=== PATIENT | male | born 1985 | race Two or more races ===

== ENCOUNTER 2019-05-01 03:55 | Emergency (ER) | payer OTHER ==
[~2019-05-01] VITALS: Ht 177.8 cm; Wt 83.6 kg
[2019-05-01] MEDS ORDERED: ELVI1TAB PO (04:22)
[2019-05-01] MEDS ORDERED: ELVI1TAB3 PO (04:22)
[2019-05-01] MEDS ORDERED: ALBU8HFA IH (04:22)
[2019-05-01] MEDS ORDERED: KETOROLAC TROMETHAMINE 30 MG/ML VIAL IM ONE (05:15)
[2019-05-01 06:10] VITALS: BP 119/78
== END 2019-05-01 06:17 | disposition home or self-care (01) ==
LOC: EMS 03:55
DX: S60.221A Contusion of right hand, initial encounter (principal); S60.222A Contusion of left hand, initial encounter; J45.909 Unspecified asthma, uncomplicated; F32.9 Major depressive disorder, single episode, unspecified; Z88.1 Allergy status to other antibiotic agents; Y04.2XXA Assault by strike against or bumped into by another person, initial encounter; Y93.89 Activity, other specified; Y92.89 Other specified places as the place of occurrence of the external cause; Y99.8 Other external cause status
CPT/HCPCS: 73130 ×2; 96372; 99283; J1885

== ENCOUNTER 2019-07-10 21:02 | Emergency (ER) | payer SELFPAY ==
[~2019-07-10] VITALS: Ht 170.2 cm; Wt 86.4 kg
[~2019-07-10 21:02] MED LIST: ALBU8HFA IH; ELVI1TAB3 PO
[2019-07-10] MEDS ORDERED: SODIUM CHLORIDE 0.9% 1,000 ML IV ONE (22:45)
[2019-07-10] MEDS ORDERED: KETOROLAC TROMETHAMINE 30 MG/ML VIAL IVP ONE (22:45)
[2019-07-10 23:10] LABS: BASOPHILS % (AUTO) 0.5 % (0.0-2.0); HEMATOCRIT 42.5 % (41-53); LYMPHOCYTES # (AUTO) 2.9 K/uL (1.0-4.8); LYMPHOCYTES % (AUTO) 34.9 % (22.0-44.0); MEAN CORPUSCULAR VOLUME 91 fL (80-100); MONOCYTES # (AUTO) 0.7 K/uL (0.1-1.0); MONOCYTES % (AUTO) 8.9 % (2.0-9.0); NEUTROPHILS # (AUTO) 4.4 K/uL (1.8-7.7); NEUTROPHILS % (AUTO) 52.7 % (40.0-70.0); PLATELET COUNT (AUTO) 201 K/uL (150-450); RED BLOOD CELL COUNT(AUTO) 4.67 MIL/uL (4.50-5.90); RED CELL DISTRIBUTION WIDTH 12.7 % (11.5-14.5)
[2019-07-10 23:18] LABS: ANION GAP 5 mmol/L (8-16); CALCIUM, TOTAL 8.6 mg/dL (8.8-10.5); CARBON DIOXIDE 31 mmol/L (22-29); CHLORIDE 104 mmol/L (98-107); CREATININE 0.98 mg/dL (0.60-1.30); GLOMERULAR FILTR. RATE CALC > 60 mL/min (>60); GLUCOSE,RANDOM 126 mg/dL (70-110); POTASSIUM 3.6 mmol/L (3.5-5.1); SODIUM SERUM 140 mmol/L (136-145); UREA NITROGEN, BLOOD 14 mg/dL (7-18)
[2019-07-10 23:30] LABS: CREATINE KINASE, TOTAL ONLY 53 U/L (39-308)
[2019-07-11 00:30] LABS: RAPID GROUP A STREP NEGATIVE (NEGATIVE)
[2019-07-11 00:43] LABS: INFLUENZA TYPE A NEGATIVE FOR TYPE A (NEGATIVE); INFLUENZA TYPE B NEGATIVE FOR TYPE B (NEGATIVE)
[2019-07-11 01:23] VITALS: BP 104/55
== END 2019-07-11 02:27 | disposition home or self-care (01) ==
LOC: EMS 21:02
DX: B34.9 Viral infection, unspecified (principal); R06.00 Dyspnea, unspecified; J35.8 Other chronic diseases of tonsils and adenoids; R07.89 Other chest pain; F32.9 Major depressive disorder, single episode, unspecified; J45.909 Unspecified asthma, uncomplicated; Z88.1 Allergy status to other antibiotic agents; Z79.899 Other long term (current) drug therapy; Z20.828 Contact with and (suspected) exposure to other viral communicable diseases
CPT/HCPCS: 36415; 71045; 80048; 82550; 83735; 84484; 85025; 87430; 87635; 87804; 96374; 99284; J1885; J7030